=== PATIENT | male | born 1940 | race Caucasian/White ===

== ENCOUNTER 2017-03-08 20:37 | Inpatient (IN) | payer MEDICARE, OTHER ==
[~2017-03-08] VITALS: Ht 170.2 cm; Wt 59.4 kg
[~2017-03-08 20:37] MED LIST: ACET-868 PO; ALEN70TA3 PO; ALPR0.255 PO; ASPI81TA2 PO; BISA10SU8 RC; CARB1TAB21 PO; CHOL100044 PO; DEXT1CAP3 PO; LACT10SO7 PO; MAGN400O6 PO; MELA3TAB PO; PRAM0.75 PO; PRAV20TA PO; SENN8.6C5 PO
--- NOTE | 2017-03-08 20:45 | NUR ---
TO BED 7 A 77 YO MALE PT BIBRA AND PER EMS PATIENT "WAS CHOKING; FOUND STAFF AT [facility] PERFORMING CPR." NO LOSS OF PULSES REPORTED. UPON ARRIVAL TO ER, PATIENT, DOES NOT FOLLOW COMMANDS, RESTLESS. 70'S O2 SAT ON ROOM AIR, COARSE ON VINCENT LUNGS, KEPT HOB ELEVATED. O2 THERAPY INITIATED. PLACED CARDIAC AND VS MONITORING. RT CALLED. DR BEDOLLA AT BEDSIDE FOR EVAL.
--- NOTE | 2017-03-08 20:48 | NUR ---
DIMA BLOOD ON THE [facility] G18.
--- NOTE | 2017-03-08 20:50 | NUR ---
CXR AT BEDSIDE.
[2017-03-08 21:09] LABS: BASOPHILS # (AUTO) 0.1 /CMM (0.0-0.2); EOSINOPHILS # (AUTO) 0.2 /CMM (0.0-0.7); HEMATOCRIT 41 % (39-51); HEMOGLOBIN 13.2 g/dL (13.5-17.5); LYMPHOCYTES # (AUTO) 2.2 /CMM (0.8-4.8); LYMPHOCYTES % (AUTO) 28.5 % (20.0-44.0); MEAN CORPUSCULAR HEMOGLOBIN 29 PG (26.0-33.0); MEAN CORPUSCULAR HGB CONC 32 g/dl (31.0-36.0); MEAN CORPUSCULAR VOLUME 88 fL (80-96); MONOCYTES # (AUTO) 0.4 /CMM (0.1-1.30); MONOCYTES % (AUTO) 5.4 % (2.0-12.0); NEUTROPHILS # (AUTO) 4.9 /CMM (1.8-8.9); NEUTROPHILS % (AUTO) 63.1 % (43.0-81.0); PLATELET COUNT (AUTO) 276 /CMM (150-450); RDW COEFFICIENT OF VARIATION 12.8 (11.5-15.0); RED BLOOD CELL COUNT(AUTO) 4.62 MIL/uL (4.5-6.0); WHITE BLOOD COUNT (AUTO) 7.8 K/uL (4.3-11.0)
[2017-03-08 21:16] LABS: ABG BASE EXCESS -1.2 mmol/L; ABG OXYGEN SATURATION 61.5 % (92.0-98.5); ABG PCO2 53.5 mmHg (35.0-45.0); ABG PH 7.303 (7.350-7.450); ABG PO2 35.7 mmHg (75.0-100.0); AaDO2 129.9 mmHg; COHb 0.8 % (0.5-1.5); MetHb 0.4 % (0.0-1.5); O2Hb 60.8 % (94.0-97.0); SITE, ABG Right Radial; VENT MODE, BG N/C
[2017-03-08 21:23] LABS: CARBON DIOXIDE 29 mmol/L (21-32); CHLORIDE 103 mmol/L (98-107); CREATININE 1.3 mg/dL (0.6-1.3); GLUCOSE 141 mg/dL (74-106); POTASSIUM 3.8 mmol/L (3.5-5.1); SODIUM SERUM 140 mmol/L (136-145); UREA NITROGEN, BLOOD 35 mg/dL (7-18)
[2017-03-08 21:25] LABS: INR 0.91 (0.87-1.13); PROTHROMBIN TIME 9.5 SECS (9.5-12.7)
[2017-03-08 21:29] LABS: TROPONIN I < 0.017 ng/mL (0.00-0.056)
[2017-03-08] MEDS ORDERED: D5W IV PRN (21:30)
[2017-03-08] MEDS ORDERED: MIDAZOLAM HCL IV PRN (21:30)
[2017-03-08] MEDS ORDERED: MIDAZOLAM HCL 5 MG/5ML VIAL ONE (21:34)
[2017-03-08 21:39] VITALS: BP 129/81
--- NOTE | 2017-03-08 21:40 | NUR ---
2122- ABG RESULTED, DR BEDOLLA FOR INTUBATION AT BEDSIDE 2124 - ETOMIDATE 10MG AND SUCCS 100MG GIVEN IVP PRIOR TO INTUBATION GIVEN. 2125 - 7.5 ET TUBE PLACED AT 23CM ON LIP CONNECTED TO [facility] VENT WITH SETTINGS FOLLOWS, AC, RATE 20, TV 500, PEEP 5, FIO2 AT 100%, VAL RT AT BEDSIDE. O2 SAT AT LOW 90'S AT THIS TIME. WILL CONTINUE TO MONITOR.
--- NOTE | 2017-03-08 21:45 | NUR ---
18 F NGT PLACED ON THE RIGHT NARE WITH TIP AT 65CM, AUSCULTATED GURGLING SOUNDS ON THE EPIGASTRIC AREA UPON INSTILLING AIR, BROWNISH GASTRIC CONTENTS ASPIRATED. CXR AT BEDSIDE FOR PLACEMENT CHECK.
[2017-03-08] MEDS ORDERED: EPINEPHRINE (1:10,000) SYRINGE 1 MG/10 ML DISP.SYRIN ONE (21:48)
--- NOTE | 2017-03-08 21:48 | NUR ---
VITAL SIGNS NOTED AT BP 53/32. HR 83. O2SAT 84%. DR BEDOLLA NOTIFIED. EPI 1 AMP GIVEN IVP ORDERED BY DR BEDOLLA.
--- NOTE | 2017-03-08 21:50 | NUR ---
STARTED 2ND SALINE LOCK ON THE LFA G16 PER DR BEDOLLA VERBAL ORDER.
[2017-03-08] MEDS ORDERED: MIDAZOLAM 50 MG/10 ML VIAL ONE (21:51)
--- NOTE | 2017-03-08 21:51 | NUR ---
2 IV NS IL BOLUS ONGOING TO RAC G18 AND LFA G16 [address] BEDOLLA'S VERBAL ORDER.
[2017-03-08] MEDS ORDERED: MIDAZOLAM HCL 2 MG/2ML VIAL IV ONE (22:00)
--- NOTE | 2017-03-08 22:03 | NUR ---
DR BEDOLLA AT BEDSIDE FOR CENTRAL VENOUS ACCESS PLACEMENT.
[2017-03-08] MEDS ORDERED: KETAMINE HCL (500MG/10ML) 50 MG/ML VIAL ONE (22:04)
--- NOTE | 2017-03-08 22:10 | NUR ---
RIGHT FEMORAL TRIPLE LUMEN CATH PLACED BY DR BEDOLLA.
[2017-03-08] MEDS ORDERED: PROPOFOL 100 ML IV ONE (22:11)
[2017-03-08] MEDS ORDERED: NOREPINEPHRINE 4 MG/4 ML AMPUL IV ONE (22:12)
--- NOTE | 2017-03-08 22:20 | NUR ---
STARTED PATIENT ON PROPOFOL AND LEVOPHED DRIP PER PROTOCOL.
[2017-03-08 22:28] LABS: ALANINE AMINOTRANSFERASE 16 U/L (12-78); ALBUMIN 3.7 g/dL (3.4-5.0); ALKALINE PHOSPHATASE 112 U/L (46-116); ASPARTATE AMINOTRANSFERASE 38 U/L (15-37); BILIRUBIN,DIRECT 0.1 mg/dL (0.0-0.2); BILIRUBIN,TOTAL 0.3 mg/dL (0.2-1.0); TOTAL PROTEIN, SERUM 7.4 g/dL (6.4-8.2)
[2017-03-08] MEDS ORDERED: PROPOFOL 200 MG/20 ML VIAL IV ONE (22:30)
[2017-03-08] MEDS ORDERED: NOREPINEPHRINE 8 MG in IV D5W 500 ML IV PRN ×2 (22:30→23:30)
[2017-03-08 22:43] LABS: B-TYPE NATRIURETIC PEPTIDE 196 PG/ML (0-125)
--- NOTE | 2017-03-08 22:50 | NUR ---
ADVANCED NG TUBE TO 70CM PER DR JOHN ORDERS POST XR READING. SECURED WITH TAPE. ENDORSED TO INSTRUCTOR MODELINGMAIRA MITCHELL CATH PLACEMENT. Addendum: 03/08/17 at [address] STEWART.
--- NOTE | 2017-03-08 22:55 | NUR ---
Report given to Jose C RAO for ICU admission and chasity.
[2017-03-08] MEDS ORDERED: KETAMINE HCL (500MG/10ML) 50 MG/ML VIAL IM ONE (23:00)
--- NOTE | 2017-03-08 23:15 | NUR ---
SENIOR CONTRACTS ADMINISTRATOR - NOTES - PT RECEIVED FROM ER ADMITTED FOR RESPIRATORY FAILURE. PT WAS INTUBATED IN ER WITH ETT 7.5, 23 CM AT LIP. PT HAS NGT, WILL INSERT MITCHELL CATHETER, PT IS SEDATED ON DIPRIVAN AND HAS LEVOPHED RUNNING, VIA RIGHT FEMORAL TRIPLE LUMEN CATHETER. PT BUE AND BLE ARE RIGID, PUPILS ARE 1, PT IS NOT ALERT. PT IS IN SINUS RHYTHM, BP 90S-100S ON LEVO. SOME COFFEE GROUND EMESIS FROM NGT, NGT TO LIS. SOME MINOR SKIN ISSUES NOTED, PICTURES TAKEN. WILL CONTINUE TO MONITOR
--- NOTE | 2017-03-08 23:17 | NUR ---
Transferred patient to ICU rm [id number] via als protocol, no incident noted, vss.
[2017-03-08] MEDS ORDERED: IV D5/0.45 NACL 1,000 ML IV PRN (23:30)
[2017-03-08] MEDS ORDERED: IPRATROPIUM NEB FS 0.5 MG/2.5 ML AMPUL.NEB NEB PRN (23:30)
[2017-03-08] MEDS ORDERED: PROPOFOL 100 ML IV PRN (23:30)
[2017-03-08] MEDS ORDERED: ALBUTEROL FS 2.5 MG/3 ML VIAL.NEB NEB PRN (23:30)
[2017-03-08] MEDS ORDERED: EPINEPHRINE (1:1000) 1 MG in IV D5W 250 ML IV PRN (23:30)
[2017-03-08] MEDS ORDERED: DEXTROSE 50%-WATER 50 ML DISP.SYRIN IV PRN (23:30)
[2017-03-08] MEDS ORDERED: LEVOFLOXACIN 500 MG /D5W 100ML 500 MG in PREMIX 1 EA IV SCH (23:30)
[2017-03-08] MEDS ORDERED: AZITHROMYCIN 500 MG in IV D5W 250 ML IV SCH (23:30)
[2017-03-08 23:34] VITALS: BP 124/75
[2017-03-08 23:45] VITALS: BP 110/63
[2017-03-08] MEDS ORDERED: PANTOPRAZOLE 40 MG VIAL ONE (23:53)
[2017-03-08] MEDS ORDERED: LEVOFLOXACIN 500 MG /D5W 100ML 100 ML IV ONE (23:54)
[2017-03-08] MEDS: PANTOPRAZOLE 40 MG VIAL IV SCH (23:59)
[2017-03-09] VITALS (83 sets, daily range): BP systolic 85–145; BP diastolic 48–106
[2017-03-09] MEDS ORDERED: MAGNESIUM HYDROXIDE 30 ML UDC PO PRN
[2017-03-09] MEDS ORDERED: ALPRAZOLAM 0.25 MG TABLET PO PRN
[2017-03-09] MEDS ORDERED: BISACODYL SUPP (10 MG) 10 MG/SUPP.RECT SUPP.RECT RC PRN
--- NOTE | 2017-03-09 | NUR ---
MITCHELL CATHETER PLACED, URINE CULTURE COLLECTED, URINE IS YELLOW WITH SEDIMENT. AND SPUTUM CULTURE COLLECTED.
[2017-03-09] MEDS ORDERED: ALBUTEROL FS 2.5 MG/3 ML VIAL.NEB ONE ×2 (00:02→03:15)
[2017-03-09] MEDS ORDERED: IPRATROPIUM NEB FS 0.5 MG/2.5 ML AMPUL.NEB ONE ×2 (00:02→03:15)
[2017-03-09] MEDS: BLOOD SUGAR DIAGNOSTIC 1 EACH STRIP IN SCH ×4 (00:04→17:17)
[2017-03-09] MEDS: IPRATROPIUM NEB FS 0.5 MG/2.5 ML AMPUL.NEB NEB SCH ×7 (00:04→23:49)
[2017-03-09] MEDS: ALBUTEROL FS 2.5 MG/3 ML VIAL.NEB NEB SCH ×7 (00:04→23:49)
[2017-03-09] MEDS ORDERED: AZITHROMYCIN 500 MG VIAL ONE (00:43)
[2017-03-09] MEDS ORDERED: VANCOMYCIN 1 GM VIAL ONE (00:54)
[2017-03-09] MEDS ORDERED: VANCOMYCIN 1 GM in IV D5W 250 ML IV ONE (01:00)
[2017-03-09] MEDS: AZITHROMYCIN 500 MG in IV D5W 250 ML IV SCH (01:08)
[2017-03-09] MEDS ORDERED: PROPOFOL 100 ML IV ONE (03:17)
[2017-03-09 04:43] LABS: APPEARANCE,URINE SL CLOUDY (CLEAR); BILIRUBIN,URINE NEGATIVE (NEGATIVE); BLOOD, URINE TRACE-INTA Ery/uL (NEGATIVE); COLOR,URINE YELLOW (YELLOW); KETONES,URINE TRACE (NEGATIVE); LEUKOCYTE ESTERASE ,URINE NEGATIVE (NEGATIVE); NITRITE, URINE NEGATIVE (NEGATIVE); PROTEIN,URINE 1+ mg/dl (NEGATIVE); UGLUCOSE NEGATIVE (NEGATIVE); UROBILINOGEN,URINE 0.2 EU/dL (0.2)
[2017-03-09 04:54] LABS: BACTERIA,URINE Few /HPF (None Seen); RBC,URINE 0-2 /HPF (0-2); SQUAMOUS EPITHELIAL CELL,UR Rare /HPF (None Seen)
[2017-03-09 04:57] LABS: ALANINE AMINOTRANSFERASE 17 U/L (12-78); ALBUMIN 2.8 g/dL (3.4-5.0); ALKALINE PHOSPHATASE 80 U/L (46-116); ASPARTATE AMINOTRANSFERASE 28 U/L (15-37); BILIRUBIN,TOTAL 0.5 mg/dL (0.2-1.0); CALCIUM, SERUM 7.8 mg/dL (8.5-10.1); CARBON DIOXIDE 26 mmol/L (21-32); CHLORIDE 103 mmol/L (98-107); GLUCOSE 182 mg/dL (74-106); MAGNESIUM 1.7 mg/dL (1.8-2.4); POTASSIUM 3.5 mmol/L (3.5-5.1); SODIUM SERUM 137 mmol/L (136-145); TOTAL PROTEIN, SERUM 5.7 g/dL (6.4-8.2); UREA NITROGEN, BLOOD 29 mg/dL (7-18)
[2017-03-09 05:23] LABS: CHOLESTEROL 110 mg/dL (<200); HDL CHOLESTEROL 65 mg/dL (40-60); LDL 38 mg/dL (0-99); TRIGLYCERIDES 25 mg/dL (30-150)
[2017-03-09 05:34] LABS: BASOPHILS % (AUTO) 0.2 % (0.0-2.0); EOSINOPHILS % (AUTO) 0.5 % (0.0-6.0); HEMATOCRIT 36 % (39-51); HEMOGLOBIN 12.2 g/dL (13.5-17.5); LYMPHOCYTES # (AUTO) 0.3 /CMM (0.8-4.8); LYMPHOCYTES % (AUTO) 15.2 % (20.0-44.0); MEAN CORPUSCULAR HEMOGLOBIN 30 PG (26.0-33.0); MEAN CORPUSCULAR HGB CONC 34 g/dl (31.0-36.0); MEAN CORPUSCULAR VOLUME 88 fL (80-96); MONOCYTES # (AUTO) 0.1 /CMM (0.1-1.30); MONOCYTES % (AUTO) 5.6 % (2.0-12.0); NEUTROPHILS # (AUTO) 1.6 /CMM (1.8-8.9); NEUTROPHILS % (AUTO) 78.5 % (43.0-81.0); PLATELET COUNT (AUTO) 217 /CMM (150-450); RDW COEFFICIENT OF VARIATION 13.4 (11.5-15.0); RED BLOOD CELL COUNT(AUTO) 4.14 MIL/uL (4.5-6.0)
[2017-03-09 05:51] LABS: BAND % (MANUAL) 4 % (0.0-5.0); LYMPHOCYTES % (MANUAL) 17 % (16-48); MONOCYTES % (MANUAL) 5 % (0-11.0); NEUTROPHILS % (MANUAL) 74 (42-76)
--- NOTE | 2017-03-09 08:00 | NUR ---
CAREER TECHNICAL EDUCATION TEACHER; ASSESSMENT RECEIVED PT VENTED VIA ETT, SEE FLOW SHEET FOR VENT SETTINGS. PT SEDATED ON DIPRIVAN DRIP, CURRENTLY ON 50MCG/KG/MIN WILL TITRATE FOR SEDATION VACATION. ON LEVOPHED DRIP AT 8MCG/MIN. WILL TITRATE ACCORDINGLY TO KEEP SPB GREATER THAN 90. NOTED VINCENT LOWER AND UPPER EXTREMITIES RIGID. MITCHELL CATH INTACT DRAINING TO GRAVITY CLEAR YELLOW URINE. NO ACUTE DISTRESS NOTED WILL CONTINUE TO MONITOR CLOSELY.
[2017-03-09] MEDS ORDERED: FEE PK DOSING 1 MIN EA MC ONE (08:36)
[2017-03-09] MEDS: PROPOFOL 100 ML IV PRN ×4 (08:37→23:43)
[2017-03-09 08:39] LABS: ABG BASE EXCESS -2.1 mmol/L; ABG OXYGEN SATURATION 91.3 % (92.0-98.5); ABG PCO2 32.7 mmHg (35.0-45.0); ABG PH 7.432 (7.350-7.450); ABG PO2 60.3 mmHg (75.0-100.0); AaDO2 151.2 mmHg; MetHb 0.6 % (0.0-1.5); O2Hb 89.8 % (94.0-97.0); PEEP,BG 5 cm H2O; SITE, ABG Right Radial; VT, ABG 500 mL
--- NOTE | 2017-03-09 08:45 | NUR ---
ENGINEER CHIEF; SEDATION VACATION. DIPRIVAN DECREASED DOWN TO 30MCG/KG/MIN. PT IS AWAKE APPEARS TO HAVE UPPER EXTREMITIES TREMORS. PT REACHING FOR ETT, UNABLE TO FOLLOW COMMANDS. DIPRIVAN PLACED TO 40MCG/KG/MIN FOR PT SAFETY AND COMFORT.
[2017-03-09] MEDS ORDERED: ETOMIDATE 2 MG/ML VIAL IV ONE (08:50)
[2017-03-09] MEDS: CHOLECALCIFEROL 1,000 UNIT TABLET (VIT D3) PO SCH ×2 (09:21→17:17)
[2017-03-09] MEDS: ASPIRIN 81 MG TAB.CHEW PO SCH (09:21)
[2017-03-09] MEDS: LACTULOSE 10 G/15 ML UDC (PYXIS) PO SCH ×2 (10:43→17:17)
--- NOTE | 2017-03-09 10:54 | NUR ---
WOUND CARE CONSULT PATIENT SEEN AND SKIN INTEGRITY ASSESSMENT DONE. PATIENT WITH KATERIN AT 10, PLEASE SEE GREEN COFFEE BLENDER ASSESSMENT IN PCS FOR TODAY ALONG WITH ALL RECOMMENDATIONS. RECOMMEND 1ST STEP LOW AIRLOSS MATTRESS, TURNING SCHED Q 2 HOURS AND BILATERAL HEEL FLOATING. MD IN AGREEMENT WITH PLAN OF CARE. ALL PRESSURE ULCER PREVENTION MEASURES NOTED TO BE IN PLACE. ALL DISCUSSED WITH NURSING AT THE BEDSIDE. Addendum: 03/09/17 at 1059 by CHANTELL OSBORNE WNDNU Amended: Links added.
[2017-03-09] MEDS ORDERED: Z GUARD REMEDY 2 OZ OINT TP PRN (11:00)
[2017-03-09] MEDS: PRAMIPEXOLE DI-HCL 0.25 MG TABLET PO SCH ×2 (12:06→17:17)
[2017-03-09] MEDS: Magnesium 1GM/D5W 100ML PREMIX 100 ML IV SCH ×2 (12:06→13:11)
[2017-03-09] MEDS ORDERED: Sodium Phosphate 15 MMOL in IV D5W 250 ML IV ONE (12:30)
[2017-03-09] MEDS: VANCOMYCIN 0.75 GM in IV D5W 250 ML IV SCH (13:11)
[2017-03-09] MEDS: Z GUARD REMEDY 2 OZ OINT TP SCH (13:12)
[2017-03-09] MEDS: NOREPINEPHRINE 8 MG in IV D5W 500 ML IV PRN (15:24)
--- NOTE | 2017-03-09 16:30 | NUR ---
DR. SANCHEZ ORDERS TO HAVE THE FEMORAL CENTRAL LINE CHANGED TO A PICC. CALLED TWICE TO THE CONSERVATOR (BRIDGET CALDWELL) OFFICE NUMBER ON THE FACE SHEET. BOTH TIMES WENT TO HER OFFICE ANSWERING SERVICE WHICH DIRECTED ME TO THE CONSERVATOR/DEPUTY OPTOMETRIC AIDE "FOR UNIT 3." LEFT HIPPA COMPLIANT MESSAGE BOTH TIMES TO CALL BACK SHOBHA. STILL AWAITING FOR CALL BACK.
[2017-03-09] MEDS: ENOXAPARIN SODIUM 40 MG/0.4 ML DISP.SYRIN SQ SCH ×2 (16:42→21:32)
[2017-03-09] MEDS: NEOMY SULF/BACITRAC ZN/POLY 15 GM TUBE TP SCH (16:43)
[2017-03-09] MEDS: IV 1/2NS 1000 ML 1,000 ML IV PRN (17:18)
--- NOTE | 2017-03-09 19:27 | NUR ---
LICENSED THERAPIST. INITIAL ASSESSMENT. RECEIVED THE PT REST ON THE BED. ORALLY INTUBATED. SEDATED WITH DIPRIVAN. ETT 7.5CM,LIP 22CM,AC 20, TV 500, FIO2 40%, PEEP 5. SAT 98%OVERHAULER HELPER SHOWING NSR. IV RT FEMORAL TRIPLE LUMEN.IVF 1/2NS 80ML/H,LEVOPHED 1MCG/MIN,DIPRIVAN 40MCG/KG/MIN.RT NARE NGT, LOW INTERMITTENT . FC PATENT. HOB ELEVATED. TURN AND REPOSITION Q2H. WILL CONTINUE TO MONITOR VITALS.
[2017-03-09] MEDS: SENNOSIDES 8.6 MG TABLET PO SCH (21:31)
[2017-03-09] MEDS: ATORVASTATIN 10 MG TABLET NG SCH (21:32)
[2017-03-09] MEDS ORDERED: Medication Not On Formulary EA (Melatonin 6 MG) PO SCH (22:00)
[2017-03-09] MEDS: LEVOFLOXACIN 250 MG /D5W 50 ML 250 MG in PREMIX 1 EA IV SCH (23:42)
[2017-03-09] MEDS: PANTOPRAZOLE 40 MG VIAL IV SCH (23:43)
[2017-03-10] VITALS (40 sets, daily range): BP systolic 99–164; BP diastolic 40–140
[2017-03-10] MEDS: BLOOD SUGAR DIAGNOSTIC 1 EACH STRIP IN SCH ×5 (00:26→23:32)
[2017-03-10] MEDS: VANCOMYCIN 0.75 GM in IV D5W 250 ML IV SCH ×2 (00:46→12:33)
[2017-03-10] MEDS: AZITHROMYCIN 500 MG in IV D5W 250 ML IV SCH (02:06)
[2017-03-10] MEDS: IPRATROPIUM NEB FS 0.5 MG/2.5 ML AMPUL.NEB NEB SCH ×6 (03:12→23:25)
[2017-03-10] MEDS: ALBUTEROL FS 2.5 MG/3 ML VIAL.NEB NEB SCH ×6 (03:13→23:25)
--- NOTE | 2017-03-10 03:39 | NUR ---
ORCHARDIST. AM CARE, ORAL CARE, BED BATH GIVEN. LINEN CHANGED. REMAINING SAME IVF NS 80ML/H. LEVOPHED 2MCG/MIN DIPRIVAN 40MCG/KG/MIN. TURN AND REPOSITION Q2H. WILL CONTINUE TO MONITOR VITALS.. AFEBRILE. NGT LOW INTERMITTENT, FC PATENT. NPO. HOB ELEVATED.
[2017-03-10 04:40] LABS: CALCIUM, SERUM 7.7 mg/dL (8.5-10.1); CARBON DIOXIDE 24 mmol/L (21-32); CHLORIDE 106 mmol/L (98-107); CREATININE 0.8 mg/dL (0.6-1.3); GLUCOSE 118 mg/dL (74-106); MAGNESIUM 2.4 mg/dL (1.8-2.4); POTASSIUM 3.1 mmol/L (3.5-5.1); SODIUM SERUM 139 mmol/L (136-145); UREA NITROGEN, BLOOD 15 mg/dL (7-18)
--- NOTE | 2017-03-10 07:00 | NUR ---
ICU INITIAL NOTES RECEIVED PT, SEDATION, ON [facility] VENT, ETT 7.5 22CM @ LIP LINE, AC 20 TV 500% FIO2 40% PEEP 5, SATING 100%, NO S/S OF RESP.DISTRESS OR SOB NOTED AT THIS TIME, PT IS ON BEDSIDE SR @ 80'S BPM, NO C/O CHEST PAIN OR DISTRESS NOTED, F/C DRAINING YELLOW URIN E TO GRAVITY, PT RNGT CONNECTED LIS, DRAINING GREEN FLUID, PT HAS R FEMORAL TLC, RUNNING LEVO @1MCG/MIN, DIPRIVAN @ 40MCG/MIN, C/D/I/ PATENT, FLUSHING WELL, DRESSING INTACT/CLEAN, RAC # 18G, LFA# 16G, SL, C/D/I/PATENT, FLUSHING WELL, NO S/S OF INFECTION/ INFILTRATION NOTED AT THIS TIME, SKIN ISSUES NOTED AT THIS TIME, ALL SAFETY MEASURES IN PLACE AT ALL TIMES, CALL LIGHT WITHIN EASY REACH, WILL MONITOR PT CLOSELY
--- NOTE | 2017-03-10 07:30 | NUR ---
DR. SANCHEZ ORDERS TO HAVE THE FEMORAL CENTRAL LINE CHANGED TO A PICC. CALLED TWICE TO THE CONSERVATOR (BRIDGET CALDWELL) OFFICE NUMBER. BOTH TIMES WENT TO HER OFFICE ANSWERING SERVICE WHICH DIRECTED ME TO THE DEPUTY BLASTING ENTRY SPECIALIST "FOR UNIT 3." LEFT MESSAGE BOTH TIMES TO CALL BACK SHOBHA. STILL AWAITING FOR CALL BACK.
--- NOTE | 2017-03-10 08:00 | NUR ---
SEDATION VACATION DIPRIVAN TURNED OFF, PT RESPONDS TO NAME, UNABLE TO FOLLOW COMMANDS, SHAKES IN ALL 4 EXTREMITIES, PT BITING ON EET TUBE, HR INCREASED, RESUMES DIPRIVAN @ 0815 @ 20MCG/MIN
[2017-03-10] MEDS: PRAMIPEXOLE DI-HCL 0.25 MG TABLET PO SCH ×3 (09:00→16:56)
[2017-03-10] MEDS ORDERED: DEXTROMETHORPHAN HBR PO SCH (09:00)
[2017-03-10] MEDS: CHOLECALCIFEROL 1,000 UNIT TABLET (VIT D3) PO SCH ×2 (09:00→16:56)
[2017-03-10] MEDS: ASPIRIN 81 MG TAB.CHEW PO SCH (09:00)
[2017-03-10] MEDS ORDERED: QUINIDINE PO SCH (09:00)
[2017-03-10] MEDS: LACTULOSE 10 G/15 ML UDC (PYXIS) PO SCH ×2 (09:00→16:56)
[2017-03-10] MEDS: CARBIDOPA/LEVODOPA 25/100 MG 1 UDTAB PO SCH ×3 (09:00→16:57)
[2017-03-10] MEDS: NEOMY SULF/BACITRAC ZN/POLY 15 GM TUBE TP SCH (09:40)
[2017-03-10] MEDS: Z GUARD REMEDY 2 OZ OINT TP SCH (09:41)
[2017-03-10] MEDS: IV 1/2NS 1000 ML 1,000 ML IV PRN ×2 (09:42→16:59)
--- NOTE | 2017-03-10 09:49 | NUR ---
ICU NOTES NON ADMINISTERED PINK MEDICATIONS FOR PT SAFETY
[2017-03-10] MEDS: PROPOFOL 100 ML IV PRN ×2 (12:23→16:59)
[2017-03-10] MEDS: POTASSIUM CL. PREMIX PERIPHER. 50 ML IV SCH ×4 (12:23→16:52)
[2017-03-10] MEDS: GLYTROL 1,000 ML BAG GT PRN (17:50)
--- NOTE | 2017-03-10 19:11 | NUR ---
SUPERVISOR SLASHING DEPARTMENT: RECEIVED PT ON SEDATION DIPRIVAN AT 40 MCG/KG/MIN, [facility], ETT 7.5 22CM @ LIP LINE, AC 20 TV 500% FIO2 40% PEEP 5, SATURATING 100%, NO S/S OF RESP.DISTRESS OR SOB NOTED AT THIS TIME, SINUS RHYTHM ON MONITOR 80-90. F/C DRAINING YELLOW URIN E TO GRAVITY., PT HAS R FEMORAL TLC, RUNNING TKO, MIN, LINE IS C/D/I/ PATENT, FLUSHING WELL, DRESSING INTACT/CLEAN, RAC # 18G, LFA# 16G, SL. SKIN PROTECTION MEASURES APPLIED. KEEP TURNING Q2H. SAFETY MEASURES IN PLACE AT ALL TIMES. KEEP MONITORING...
--- NOTE | 2017-03-10 20:12 | NUR ---
RT RECEIVED PT ORALLY INTUBATED W/ A 7.5 ETT MARKED 22CM AT THE LIP. PT ON AC 20 500 40% +5 VENT SETTINGS. VENT ALARMS CHECKED AND AUDIBLE. VENT PLUGGED IN RED OUTLET. AMBU BAG NOTED BEDSIDE. B/S BILATERAL. BREAKFAST AND ROOM ATTENDANT DONE. SX WITH MINIMAL THK YELLOW/WHITE SECRETIONS. NO SIGNS OF RESP DISTRESS. WILL CONTINUE TO MONITOR T/O SHIFT, Addendum: 03/10/17 at 2014 by ARLET IRIZARRY RT Amended: Links added.
[2017-03-10] MEDS: ATORVASTATIN 10 MG TABLET NG SCH (20:41)
[2017-03-10] MEDS: ENOXAPARIN SODIUM 40 MG/0.4 ML DISP.SYRIN SQ SCH (20:42)
[2017-03-10] MEDS: SENNOSIDES 8.6 MG TABLET PO SCH (20:42)
[2017-03-10] MEDS: LEVOFLOXACIN 250 MG /D5W 50 ML 250 MG in PREMIX 1 EA IV SCH (23:20)
[2017-03-10] MEDS: IV NS 0.9% 250 ML IV PRN (23:20)
[2017-03-10] MEDS: PANTOPRAZOLE 40 MG VIAL IV SCH (23:32)
[2017-03-11] VITALS (98 sets, daily range): BP systolic 58–168; BP diastolic 29–89
[2017-03-11] MEDS: PROPOFOL 100 ML IV PRN ×4 (00:18→23:14)
[2017-03-11] MEDS: VANCOMYCIN 0.75 GM in IV D5W 250 ML IV SCH ×2 (00:19→13:33)
[2017-03-11] MEDS: NOREPINEPHRINE 8 MG in IV D5W 500 ML IV PRN ×2 (00:32→16:10)
--- NOTE | 2017-03-11 00:41 | NUR ---
BULK CLERK: SBP DROPPED TO 57/30 EVEN CONTINUE CHECKED X 4 STILL LOW, LEVOPHED RESTARTED AGAIN PER PROTOCOL. KEEP MONITORING...
[2017-03-11] MEDS: AZITHROMYCIN 500 MG in IV D5W 250 ML IV SCH (02:33)
[2017-03-11] MEDS: IPRATROPIUM NEB FS 0.5 MG/2.5 ML AMPUL.NEB NEB SCH ×6 (03:28→23:28)
[2017-03-11] MEDS: ALBUTEROL FS 2.5 MG/3 ML VIAL.NEB NEB SCH ×6 (03:28→23:28)
[2017-03-11 04:40] LABS: CALCIUM, SERUM 7.5 mg/dL (8.5-10.1); CARBON DIOXIDE 23 mmol/L (21-32); CHLORIDE 107 mmol/L (98-107); CREATININE 0.7 mg/dL (0.6-1.3); GLUCOSE 169 mg/dL (74-106); POTASSIUM 3.4 mmol/L (3.5-5.1); SODIUM SERUM 139 mmol/L (136-145)
[2017-03-11 05:13] LABS: UREA NITROGEN, BLOOD 13 mg/dL (7-18)
[2017-03-11] MEDS: BLOOD SUGAR DIAGNOSTIC 1 EACH STRIP IN SCH ×3 (05:27→17:06)
--- NOTE | 2017-03-11 07:35 | NUR ---
RT PT RECEIVED ORALLY INTUBATED WITH A 7.5 ETT SECURED AT 22CM AT THE LIP LINE ON THE VENT. PT IS CURRENTLY SEDATED AT THIS TIME, BUT RESPONDS TO STIMULI. VENT ALARMS ARE SET AND AUDIBLE WITH BVM BY BEDSIDE. VENT IS PLUGGED INTO RED OUTLET. NO RESPIRATORY DISTRESS NOTED AT THIS TIME, WILL CONTINUE TO MONITOR. Addendum: 03/11/17 at 1835 by CLAUDETTE CESPEDES RT Amended: Links added.
--- NOTE | 2017-03-11 08:00 | NUR ---
TELEPHONE DIRECTORY DISTRIBUTOR DRIVER- PT NOTED WITH TEMPERATURE OF 100.8. WILL ADMINISTER TYLENOL ORDERED PRN IN OCT. COOLING MEASURES TO BE APPLIED. WILL CONTINUE TO MONITOR.
[2017-03-11] MEDS: ASPIRIN 81 MG TAB.CHEW PO SCH (08:36)
[2017-03-11] MEDS: ACETAMINOPHEN 325 MG TABLET PO PRN (08:36)
[2017-03-11] MEDS: CHOLECALCIFEROL 1,000 UNIT TABLET (VIT D3) PO SCH ×2 (08:36→16:05)
[2017-03-11] MEDS: LACTULOSE 10 G/15 ML UDC (PYXIS) PO SCH ×2 (08:36→16:05)
[2017-03-11] MEDS: NEOMY SULF/BACITRAC ZN/POLY 15 GM TUBE TP SCH (08:37)
[2017-03-11] MEDS: Z GUARD REMEDY 2 OZ OINT TP SCH (08:37)
[2017-03-11 08:51] LABS: ABG BASE EXCESS -0.7 mmol/L; ABG PCO2 32.8 mmHg (35.0-45.0); ABG PH 7.458 (7.350-7.450); ABG PO2 243.7 mmHg (75.0-100.0); AaDO2 3.8 mmHg; COHb 0.6 % (0.5-1.5); O2Hb 97.4 % (94.0-97.0); PEEP,BG 5 cm H2O; SITE, ABG Left Radial; VT, ABG 500 mL
--- NOTE | 2017-03-11 09:00 | NUR ---
DIRECTOR FRAUD- SEDATION VACATION DONE, DIPRIVAN TURNED OFF. PT AWAKE, OPENS EYES, UNABLE TO FOLLOW SIMPLE COMMANDS. PT ATTEMPTING TO REMOVE NGT AND ETT. DIPRIVAN RE-STARTED AT 40 MCG/MIN FOR PT SAFETY. WILL CONTINUE TO MONITOR.
[2017-03-11] MEDS ORDERED: POTASSIUM CHLORIDE 20 MEQ POWDER PACKET NG SCH (10:30)
[2017-03-11] MEDS: INSULIN REGULAR, HUMAN 100 UNIT/ML 3 ML VIAL SQ PRN ×2 (11:34→17:08)
--- NOTE | 2017-03-11 12:00 | NUR ---
SHORE WORKER- I HAVE ATTEMPTED TO CONTACT THE PATIENT'S CONSERVATOR FOR PICC LINE PLACEMENT CONSENT, UNABLE TO GET IN TOUCH AND UNABLE TO LEAVE MESSAGE ON NUMBER PROVIDED. PT ON PRESSORS (REQUIRES LEVOPHED FOR BP SUPPORT), CONSENT WAS OBTAINED BY 2 NURSES (MYSELF AND KATIE CHARGE). PLACED IN CHART. WILL CONTINUE TO MONITOR.
--- NOTE | 2017-03-11 12:30 | NUR ---
FOLDER AND NOTCHERMallory AGUILLON DNP PLACED PICC LINE IN [facility], STATES CHEST X-RAY IS NOT NEEDED. PT TOLERATED WELL, WILL CONTINUE TO MONITOR.
[2017-03-11] MEDS: GLYTROL 1,000 ML BAG GT PRN (14:02)
--- NOTE | 2017-03-11 17:15 | NUR ---
WIRE TINNER- DR. SANCHEZ AT BEDSIDE. UPDATED MD ON PT'S STATUS. MD AWARE OF PT'S TEMP 100.8 THIS AM, FEMORAL TLC WAS REMOVED AND PICC LINE WAS PLACED. OBTAINED ORDERS FOR 1) BLOOD CULTURE X2 AND 2) CATH TIP CULTURE. ORDERS PLACED. WILL CONTINUE TO MONITOR.
--- NOTE | 2017-03-11 19:45 | NUR ---
ICU/SCALE INSTALLER RECEIVED REPORT FROM DAY NURSE. PT IS OBTUNDED, AND OPENS EYES BUT DOES NOT TRACK. PT IS ORALLY INTUBATED TOLERATING CURRENT SETTINGS, SATURATION IS 99-100%. PT IS CURRENTLY SR ON THE MONITOR. PT HAS RIGHT NARE N/G FEEDING TUBE WITH GLYROL 65CC/HR. PT HAS DIAPER ON, CURRENTLY DRY. PT ALSO HAS A DIAPER ON PT HAS A FEW SKIN SKIN ISSUES THAT ARE ADDRESSED ON THE FLOW SHEET. REPOSITIONED FOR COMFORT AND CARE. NO ACUTE DISTRESS SEEN AT THIS TIME, PT APPEARS COMFORTABLE. WILL MONITOR PT.
[2017-03-11] MEDS: ATORVASTATIN 10 MG TABLET NG SCH (21:27)
[2017-03-11] MEDS: SENNOSIDES 8.6 MG TABLET PO SCH (21:27)
[2017-03-11] MEDS: ENOXAPARIN SODIUM 40 MG/0.4 ML DISP.SYRIN SQ SCH (21:29)
--- NOTE | 2017-03-11 23:10 | NUR ---
ICU/PETROLEUM ANALYST STARTED LEVO AGAIN DUE TO LOW BLOOD PRESSURE. IT RECYCLED TWICE WITH BLOOD PRESSURE IN THE 80'S. FIRST TIME WAS 80/45 THEN 83/43, CHARGE NURSE WAS NOTIFIED THEN STATED ON LEVO AT 1 MCG. PT WAS TURNED AND REPOSITIONED FOR COMFORT AND CARE. WILL CONTINUE TO MONITOR THE BLOOD PRESSURE.
[2017-03-11] MEDS: LEVOFLOXACIN 250 MG /D5W 50 ML 250 MG in PREMIX 1 EA IV SCH (23:13)
[2017-03-11] MEDS: PANTOPRAZOLE 40 MG VIAL IV SCH (23:14)
--- NOTE | 2017-03-11 23:20 | NUR ---
ICU/UNHAIRING MACHINE OPERATOR RESPIRATORY THERAPIST AT BEDSIDE GIVING BREATHING TREATMENT. PT TOLERATED THIS WELL AND REMAINS ON CURRENT VENT SETTINGS WITH SATURATION AT 100%. WILL CONTINUE TO MONITOR THIS PT AND HIS SATURATION. NO ACUTE DISTRESS SEEN AT THIS TIME, PT APPEARS TO BE COMFORTABLE.
[2017-03-12] VITALS (52 sets, daily range): BP systolic 85–145; BP diastolic 45–76
--- NOTE | 2017-03-12 00:45 | NUR ---
ICU/HAND CEMENTER BLOOD SUGAR IS 125, THERE IS NO COVERAGE FOR THIS. WILL CONTINUE TO MONITOR THIS PT. PT WAS TURNED AND REPOSITIONED FOR COMFORT AND CARE.
[2017-03-12] MEDS: VANCOMYCIN 0.75 GM in IV D5W 250 ML IV SCH ×2 (01:51→13:04)
[2017-03-12] MEDS: BLOOD SUGAR DIAGNOSTIC 1 EACH STRIP IN SCH ×4 (01:59→17:10)
[2017-03-12] MEDS: AZITHROMYCIN 500 MG in IV D5W 250 ML IV SCH (02:11)
--- NOTE | 2017-03-12 02:30 | NUR ---
ICU/CARPET CUTTER PT WAS GIVEN AM CARE, ALONG WITH ORAL CARE. PT WAS THEN TURNED AND REPOSITIONED FOR COMFORT AND CARE. PT APPEARS COMFORTABLE, NO ACUTE DISTRESS SEEN, WILL CONTINUE TO MONITOR THIS PT.
[2017-03-12] MEDS: IPRATROPIUM NEB FS 0.5 MG/2.5 ML AMPUL.NEB NEB SCH ×6 (04:00→23:17)
[2017-03-12] MEDS: ALBUTEROL FS 2.5 MG/3 ML VIAL.NEB NEB SCH ×6 (04:00→23:17)
--- NOTE | 2017-03-12 04:10 | NUR ---
ICU/STOREROOM KEEPER AM LABS WERE DRAWN, WAIT LAB RESULTS. PT WAS TURNED AND REPOSITIONED FOR COMFORT AND CARE.
[2017-03-12] MEDS: PROPOFOL 100 ML IV PRN ×3 (05:16→17:17)
[2017-03-12 05:28] LABS: CALCIUM, SERUM 7.8 mg/dL (8.5-10.1); CARBON DIOXIDE 26 mmol/L (21-32); CHLORIDE 108 mmol/L (98-107); CREATININE 0.5 mg/dL (0.6-1.3); GLUCOSE 130 mg/dL (74-106); POTASSIUM 3.6 mmol/L (3.5-5.1); SODIUM SERUM 140 mmol/L (136-145); UREA NITROGEN, BLOOD 12 mg/dL (7-18)
--- NOTE | 2017-03-12 06:10 | NUR ---
ICU/HOD CARRIER BLOOD SUGAR IS 130, THERE IS NO COVERAGE FOR THIS. WILL CONTINUE TO MONITOR THIS PT. PT WAS TURNED AND REPOSITIONED FOR COMFORT AND CARE.
[2017-03-12] MEDS: GLYTROL 1,000 ML BAG GT PRN (06:29)
[2017-03-12] MEDS: IV NS 0.9% 250 ML IV PRN (06:30)
--- NOTE | 2017-03-12 07:00 | NUR ---
Patient intubated ETT 7.5 22cm lip line with vent setting @ AC 16 TV 500 FiO2 30% PEEP 5, saturation wnl. On low dose of levophed @ 1mcg, will titrate off. Sedated with propofol @ 40mcg but eyes open, does not follow command. Moves extremities with pain but no purposeful movement. Resting tremors noted on the lips, will check with Parkinson's meds. Right NGT with feeding running @ 65ml/hr, no residuals. Vitals stable, afebrile.
[2017-03-12] MEDS: LACTULOSE 10 G/15 ML UDC (PYXIS) PO SCH ×2 (08:05→17:10)
[2017-03-12] MEDS: ASPIRIN 81 MG TAB.CHEW PO SCH (08:05)
[2017-03-12] MEDS: CHOLECALCIFEROL 1,000 UNIT TABLET (VIT D3) PO SCH ×2 (08:05→17:10)
[2017-03-12] MEDS: NEOMY SULF/BACITRAC ZN/POLY 15 GM TUBE TP SCH (08:06)
[2017-03-12] MEDS: Z GUARD REMEDY 2 OZ OINT TP SCH (08:06)
--- NOTE | 2017-03-12 09:30 | NUR ---
Seen by Dr. Fabian. May resume Carbidopa/Levodopa 25/100 TID through G-tube if plan to have weaning trial. Off levophed since 0900 and remain normotensive- see vitals signs datascope
--- NOTE | 2017-03-12 14:00 | NUR ---
Talked with Dr. Avery, weaning trial plans french. Sinemet restarted in AM per Dr. Fabian earlier.
--- NOTE | 2017-03-12 20:00 | NUR ---
Received patient sedated on Diprivan drip @ 40 mcg/kg/min but eyes open not tracking and not following commands.Orally intubated on AC mode.Remains on same vent settings well tolerated.SPO2 98%Secretions suctioned and oral care done.VS stable.SR per monitor.Hemodynamically stable.GT feeding via R nare NGT infusing at 65 ml/hr.No residual noted.HOB elevated.IV'S infusing via CONOR PICC Line and site intact.FC to gravity drainage with clear yellow urine.Turned and repositioned offloading pressure points.No acute distress noted.
[2017-03-12] MEDS: ENOXAPARIN SODIUM 40 MG/0.4 ML DISP.SYRIN SQ SCH (21:09)
[2017-03-12] MEDS: ATORVASTATIN 10 MG TABLET NG SCH (22:04)
[2017-03-12] MEDS: SENNOSIDES 8.6 MG TABLET PO SCH (22:04)
[2017-03-12] MEDS: LEVOFLOXACIN 250 MG /D5W 50 ML 250 MG in PREMIX 1 EA IV SCH (23:08)
[2017-03-12] MEDS: PANTOPRAZOLE 40 MG VIAL IV SCH (23:08)
[2017-03-13] VITALS (56 sets, daily range): BP systolic 80–160; BP diastolic 44–91
[2017-03-13] MEDS: BLOOD SUGAR DIAGNOSTIC 1 EACH STRIP IN SCH ×4 (00:13→17:44)
[2017-03-13] MEDS: PROPOFOL 100 ML IV PRN ×4 (00:14→17:00)
[2017-03-13] MEDS: GLYTROL 1,000 ML BAG GT PRN ×2 (00:21→21:04)
[2017-03-13] MEDS: VANCOMYCIN 0.75 GM in IV D5W 250 ML IV SCH ×2 (01:00→12:25)
[2017-03-13] MEDS: AZITHROMYCIN 500 MG in IV D5W 250 ML IV SCH (02:07)
[2017-03-13] MEDS: ALBUTEROL FS 2.5 MG/3 ML VIAL.NEB NEB SCH ×6 (03:14→23:16)
[2017-03-13] MEDS: IPRATROPIUM NEB FS 0.5 MG/2.5 ML AMPUL.NEB NEB SCH ×6 (03:15→23:16)
[2017-03-13 04:49] LABS: CALCIUM, SERUM 7.6 mg/dL (8.5-10.1); CARBON DIOXIDE 29 mmol/L (21-32); CHLORIDE 107 mmol/L (98-107); CREATININE 0.5 mg/dL (0.6-1.3); GLUCOSE 114 mg/dL (74-106); POTASSIUM 3.7 mmol/L (3.5-5.1); SODIUM SERUM 144 mmol/L (136-145); UREA NITROGEN, BLOOD 9 mg/dL (7-18)
[2017-03-13 04:58] LABS: EOSINOPHILS # (AUTO) 0.5 /CMM (0.0-0.7); HEMATOCRIT 30 % (39-51); HEMOGLOBIN 9.9 g/dL (13.5-17.5); LYMPHOCYTES # (AUTO) 0.7 /CMM (0.8-4.8); MEAN CORPUSCULAR HGB CONC 33 g/dl (31.0-36.0); MONOCYTES # (AUTO) 0.4 /CMM (0.1-1.30); MONOCYTES % (AUTO) 6.1 % (2.0-12.0); WHITE BLOOD COUNT (AUTO) 6.9 K/uL (4.3-11.0)
--- NOTE | 2017-03-13 06:30 | NUR ---
Patient resting.VS remains stable.Hemodynamically stable.Tube feeding well tolerated.AM care. Turned and repositioned.All due medications administered.Blood sugar monitored resulted wnl x 2 readings. No acute distress noted.Plan weaning today.
[2017-03-13] MEDS: ASPIRIN 81 MG TAB.CHEW PO SCH (08:30)
[2017-03-13] MEDS: LACTULOSE 10 G/15 ML UDC (PYXIS) PO SCH ×2 (08:30→16:57)
[2017-03-13] MEDS: CHOLECALCIFEROL 1,000 UNIT TABLET (VIT D3) PO SCH ×2 (08:30→17:00)
[2017-03-13] MEDS: Z GUARD REMEDY 2 OZ OINT TP SCH (08:31)
[2017-03-13] MEDS: NEOMY SULF/BACITRAC ZN/POLY 15 GM TUBE TP SCH (08:31)
[2017-03-13] MEDS: CARBIDOPA/LEVODOPA 25/100 MG 1 UDTAB PO SCH ×3 (08:31→17:01)
[2017-03-13] MEDS: IV NS 0.9% 250 ML IV PRN (08:47)
--- NOTE | 2017-03-13 09:13 | NUR ---
BLADE OPERATOR PATIENT IS FOR WEANING, TITRATING DOWN DIPRIVAN TO TOLERABLE LEVEL OPEN EYES NO TRACKING MONITORED CLOSELY LEVOPHED WAS OFF SINCE 9AM YESTERDAY
[2017-03-13 11:01] LABS: BASOPHILS % (AUTO) 0.4 % (0.0-2.0); EOSINOPHILS % (AUTO) 7.4 % (0.0-6.0); LYMPHOCYTES % (AUTO) 10.4 % (20.0-44.0); MEAN CORPUSCULAR HEMOGLOBIN 29 PG (26.0-33.0); MEAN CORPUSCULAR VOLUME 87 fL (80-96); NEUTROPHILS # (AUTO) 5.3 /CMM (1.8-8.9); NEUTROPHILS % (AUTO) 75.7 % (43.0-81.0); PLATELET COUNT (AUTO) 176 /CMM (150-450); RDW COEFFICIENT OF VARIATION 14.5 (11.5-15.0); RED BLOOD CELL COUNT(AUTO) 3.41 MIL/uL (4.5-6.0)
[2017-03-13] MEDS: ACETAMINOPHEN 325 MG TABLET PO PRN (18:14)
--- NOTE | 2017-03-13 18:25 | NUR ---
WRECKING CAR DRIVER WEANING DONE BUT PATIENT PLACED BACK TO AC CANNOT TOLERATE WEANING PROCESS, RR-38 PATIENT WAS GIVEN PARACETAMOL, LOW GRADE FEVER NOTED MAINTAINED IN A COOL ENVIRONMENT SECOND DOSE LACTULOSE NOT GIVEN, BM 2X NO OTHER UNTOWARD SYMPTOMS SEEN ENDORSED TO NOD
--- NOTE | 2017-03-13 20:00 | NUR ---
Received patient resting in no acute distress.Remains intubated/vented on AC mode with sedation of Diprivan at 40 mcg.SR per monitor.VS stable.NGT feeding infusing at 65 ml/hr.No residual noted. HOB elevated.FC to gravity draining well.Turned and repositioned.Continue monitoring.
[2017-03-13] MEDS: ENOXAPARIN SODIUM 40 MG/0.4 ML DISP.SYRIN SQ SCH (21:02)
--- NOTE | 2017-03-13 21:44 | NUR ---
PT RECEIVED INTUBATED ON [facility] VENT. NO RESP DISTRESS. PT TOLERATING VENT SETTINGS. 7.5 ETT AT 22CM LIP LINE. SX'D FOR SML AMT OF THICK PALE SECRETIONS. VENT ALARMS SET AND AUDIBLE. AMBU BAG AT [facility]. VENT PLUGGED INTO RED OUTLET. WILL CONTINUE TO MONITOR. Addendum: 03/13/17 at 2146 by BENTLEY REYNA RT Amended: Links added.
[2017-03-13] MEDS: ATORVASTATIN 10 MG TABLET NG SCH (22:02)
[2017-03-13] MEDS: SENNOSIDES 8.6 MG TABLET PO SCH (22:02)
[2017-03-13] MEDS: LEVOFLOXACIN 250 MG /D5W 50 ML 250 MG in PREMIX 1 EA IV SCH (23:05)
[2017-03-13] MEDS: PANTOPRAZOLE 40 MG VIAL IV SCH (23:38)
[2017-03-14] VITALS (35 sets, daily range): BP systolic 91–162; BP diastolic 48–87
[2017-03-14] MEDS: BLOOD SUGAR DIAGNOSTIC 1 EACH STRIP IN SCH ×2 (00:02→05:53)
[2017-03-14] MEDS: VANCOMYCIN 0.75 GM in IV D5W 250 ML IV SCH ×2 (01:01→12:30)
[2017-03-14] MEDS: PROPOFOL 100 ML IV PRN ×4 (01:34→22:55)
[2017-03-14] MEDS: AZITHROMYCIN 500 MG in IV D5W 250 ML IV SCH (02:08)
[2017-03-14] MEDS: ALBUTEROL FS 2.5 MG/3 ML VIAL.NEB NEB SCH ×6 (03:10→23:21)
[2017-03-14] MEDS: IPRATROPIUM NEB FS 0.5 MG/2.5 ML AMPUL.NEB NEB SCH ×6 (03:10→23:21)
[2017-03-14 05:02] LABS: BASOPHILS % (AUTO) 0.1 % (0.0-2.0); EOSINOPHILS # (AUTO) 0.6 /CMM (0.0-0.7); EOSINOPHILS % (AUTO) 9.1 % (0.0-6.0); HEMATOCRIT 29 % (39-51); HEMOGLOBIN 9.6 g/dL (13.5-17.5); LYMPHOCYTES # (AUTO) 0.7 /CMM (0.8-4.8); LYMPHOCYTES % (AUTO) 10.7 % (20.0-44.0); MEAN CORPUSCULAR HEMOGLOBIN 30 PG (26.0-33.0); MEAN CORPUSCULAR HGB CONC 34 g/dl (31.0-36.0); MEAN CORPUSCULAR VOLUME 88 fL (80-96); MONOCYTES # (AUTO) 0.4 /CMM (0.1-1.30); MONOCYTES % (AUTO) 5.8 % (2.0-12.0); NEUTROPHILS # (AUTO) 4.8 /CMM (1.8-8.9); NEUTROPHILS % (AUTO) 74.3 % (43.0-81.0); PLATELET COUNT (AUTO) 209 /CMM (150-450); RDW COEFFICIENT OF VARIATION 13.8 (11.5-15.0); RED BLOOD CELL COUNT(AUTO) 3.26 MIL/uL (4.5-6.0); WHITE BLOOD COUNT (AUTO) 6.4 K/uL (4.3-11.0)
[2017-03-14 05:19] LABS: CALCIUM, SERUM 7.8 mg/dL (8.5-10.1); CARBON DIOXIDE 30 mmol/L (21-32); CHLORIDE 107 mmol/L (98-107); CREATININE 0.5 mg/dL (0.6-1.3); GLUCOSE 129 mg/dL (74-106); MAGNESIUM 1.7 mg/dL (1.8-2.4); PHOSPHORUS 3.1 mg/dL (2.5-4.9); POTASSIUM 3.7 mmol/L (3.5-5.1); SODIUM SERUM 143 mmol/L (136-145); UREA NITROGEN, BLOOD 10 mg/dL (7-18)
--- NOTE | 2017-03-14 07:05 | NUR ---
Patient resting.VS remains stable.No significant change noted all throughout the shift.Bathed.Turned and repositioned.Moderate urine output.No BM noted.NAD.
--- NOTE | 2017-03-14 08:02 | NUR ---
RT PATIENT REC'D ORALLY INTUBATED ON [facility] VENT WITH SETTINGS SET BY MD ROSEANNE DONALDSON. VENT ALARMS CHECKED + AUDIBLE. VENT PLUGGED INTO RED OUTLET. PATIENT SUCTIONED WITH SMALL AMT OF PALE YELLOW SEMITHICK SECRETIONS. SHAHZAD SANDOVAL B/S HEARD. NICKI BAG AT HOB. Addendum: 03/14/17 at 0842 by ROSARIO KERR RT Amended: Links added.
[2017-03-14] MEDS: ASPIRIN 81 MG TAB.CHEW PO SCH (09:00)
[2017-03-14] MEDS: LACTULOSE 10 G/15 ML UDC (PYXIS) PO SCH ×2 (09:00→17:00)
[2017-03-14] MEDS: NEOMY SULF/BACITRAC ZN/POLY 15 GM TUBE TP SCH (09:01)
[2017-03-14] MEDS: CHOLECALCIFEROL 1,000 UNIT TABLET (VIT D3) PO SCH ×2 (09:01→17:00)
[2017-03-14] MEDS: Z GUARD REMEDY 2 OZ OINT TP SCH (09:01)
[2017-03-14] MEDS: CARBIDOPA/LEVODOPA 25/100 MG 1 UDTAB PO SCH ×3 (09:01→17:00)
[2017-03-14] MEDS: Magnesium 1GM/D5W 100ML PREMIX 100 ML IV SCH ×2 (09:25→10:15)
--- NOTE | 2017-03-14 11:05 | NUR ---
SOFTWARE ASSET MANAGER WEANING STARTED, PROPOFOL STOPPED MONITORED PATIENT CLOSELY PATIENT IS ALERT, MOVES ON BED AT TIME TO TIME, REMOVES HIS GOWN AND TRYING TO REMOVE NGT AND ET. HE IS PLACED SOFT WRIST RESTRAINT
[2017-03-14] MEDS: GLYTROL 1,000 ML BAG GT PRN (12:30)
[2017-03-14] MEDS: IV NS 0.9% 250 ML IV PRN (12:43)
--- NOTE | 2017-03-14 13:48 | NUR ---
RT PER DR CASE PATIENT PLACED ON SIMV 4, 500, PS 12, +5. VENT ALARMS CHECKED + AUDIBLE. PATIENT APPEARS COMFORTABLE AND IN NO DISTRESS AT THIS TIME. WILL CONT TO MONITOR. Addendum: 03/14/17 at 1349 by ROSARIO KERR RT Amended: Links added.
--- NOTE | 2017-03-14 15:07 | NUR ---
PT UN COMFORTABLE, TACHYPNEIC W RR 36 BPM, RHYTHMIC CHEWING ON ETT AND KICKING AND HITTING AT NURSES. NO PLAN FOR EXTUBATION TODAY THEREFORE A/C MODE RESUMED AND DIPRIVAN RESUMED
--- NOTE | 2017-03-14 15:13 | NUR ---
RT PATIENT UNABLE TO TOLERATE WEANING WITH VISIBLE SIGNS OF SOB AND DISTRESS. PATIENT PLACED BACK ON PREVIOUS VENT SETTINGS. RN AWARE. Addendum: 03/14/17 at 1514 by ROSARIO KERR RT Amended: Links added.
--- NOTE | 2017-03-14 18:13 | NUR ---
ORACLE TECHNICAL ARCHITECT PATIENT IS BACK TO AC MODE, DIPRIVAN RESTARTED LACTULOSE SECOND DOSE NOT GIVEN, LARGE STOOL SOFT NOTED BLOOD PRESSURE MONITORED CLOSELY URINE OUTPUT GREENISH COLOR, LARGE IN AMOUNT ENDORSED TO NOD
[2017-03-14] MEDS: ATORVASTATIN 10 MG TABLET NG SCH (21:25)
[2017-03-14] MEDS: SENNOSIDES 8.6 MG TABLET PO SCH (21:25)
[2017-03-14] MEDS: AZITHROMYCIN 250 MG TABLET GT SCH (21:25)
[2017-03-14] MEDS: LEVOFLOXACIN (250MG) 250 MG TABLET NG SCH (21:25)
[2017-03-14] MEDS: ENOXAPARIN SODIUM 40 MG/0.4 ML DISP.SYRIN SQ SCH (21:26)
--- NOTE | 2017-03-14 21:46 | NUR ---
PT RECEIVED INTUBATED ON [facility] VENT. NO RESP DISTRESS. PT TOLERATING VENT SETTINGS. SX'D FOR SML AMT OF THICK PALE SECRETIONS. VENT ALARMS SET AND AUDIBLE. AMBU BAG AT [facility]. VENT PLUGGED INTO RED OUTLET. WILL CONTINUE TO MONITOR. Addendum: 03/14/17 at 2146 by BENTLEY REYNA RT Amended: Links added.
[2017-03-14] MEDS: PANTOPRAZOLE 40 MG VIAL IV SCH (23:12)
[2017-03-15] VITALS (37 sets, daily range): BP systolic 92–147; BP diastolic 52–82
[2017-03-15] MEDS: VANCOMYCIN 0.75 GM in IV D5W 250 ML IV SCH ×2 (00:45→15:30)
[2017-03-15] MEDS: PROPOFOL 100 ML IV PRN ×2 (03:27→18:15)
[2017-03-15] MEDS: IPRATROPIUM NEB FS 0.5 MG/2.5 ML AMPUL.NEB NEB SCH ×6 (03:31→23:20)
[2017-03-15] MEDS: ALBUTEROL FS 2.5 MG/3 ML VIAL.NEB NEB SCH ×6 (03:31→23:20)
[2017-03-15 04:41] LABS: BASOPHILS % (AUTO) 0.5 % (0.0-2.0); EOSINOPHILS # (AUTO) 0.5 /CMM (0.0-0.7); HEMATOCRIT 30 % (39-51); HEMOGLOBIN 10.1 g/dL (13.5-17.5); LYMPHOCYTES # (AUTO) 0.8 /CMM (0.8-4.8); LYMPHOCYTES % (AUTO) 12.6 % (20.0-44.0); MEAN CORPUSCULAR HEMOGLOBIN 30 PG (26.0-33.0); MEAN CORPUSCULAR HGB CONC 34 g/dl (31.0-36.0); MEAN CORPUSCULAR VOLUME 87 fL (80-96); MONOCYTES # (AUTO) 0.4 /CMM (0.1-1.30); MONOCYTES % (AUTO) 6.6 % (2.0-12.0); NEUTROPHILS # (AUTO) 4.9 /CMM (1.8-8.9); NEUTROPHILS % (AUTO) 72.3 % (43.0-81.0); PLATELET COUNT (AUTO) 252 /CMM (150-450); RED BLOOD CELL COUNT(AUTO) 3.44 MIL/uL (4.5-6.0); RETICULOCYTE COUNT 1.7 % (0.6-2.5); WHITE BLOOD COUNT (AUTO) 6.8 K/uL (4.3-11.0)
[2017-03-15 04:48] LABS: CARBON DIOXIDE 32 mmol/L (21-32); CHLORIDE 106 mmol/L (98-107); SODIUM SERUM 141 mmol/L (136-145)
[2017-03-15 04:58] LABS: CALCIUM, SERUM 7.7 mg/dL (8.5-10.1); CREATININE 0.5 mg/dL (0.6-1.3); GLUCOSE 123 mg/dL (74-106); UREA NITROGEN, BLOOD 11 mg/dL (7-18)
[2017-03-15 04:59] LABS: IRON, SERUM 14 ug/dl (50-175); TOTAL IRON BINDING CAPACITY 143 ug/dl (250-450)
[2017-03-15] MEDS: GLYTROL 1,000 ML BAG GT PRN (06:44)
--- NOTE | 2017-03-15 07:45 | NUR ---
INITIAL HOME DAY CARE PROVIDER NOTE RCVD PT WITH EYES OPEN, INTUBATED ETT 7.5 22 AT LIP, SEDATED, SHOWING NO S/O DISTRESS OR PAIN. SR ON TELE. TOLERATING ORDERED VENT SETTINGS. NG TUBE PLACEMENT VERIFIED BY AUSCULTATION/ASPIRATION. TOLERATING ORDERED TUBE FEEDING RATE. NO RESIDUAL OBTAINED. MITCHELL IN PLACE DRAINING CLEAR, GREEN TINTED URINE. IV SITES C/D/I/PATENT. NO S/O INFILTRATION/PHLEBITIS OBSERVED UPON FLUSHING LINES. WILL CONTINUE TO MONITOR PT FOR SAFETY AND COMFORT. CALL LIGHT WITHIN REACH. BED IN LOW AND LOCKED POSITION.
[2017-03-15] MEDS: CARBIDOPA/LEVODOPA 25/100 MG 1 UDTAB PO SCH ×3 (09:14→17:13)
[2017-03-15] MEDS: CHOLECALCIFEROL 1,000 UNIT TABLET (VIT D3) PO SCH ×2 (09:14→17:13)
[2017-03-15] MEDS: ASPIRIN 81 MG TAB.CHEW NG SCH (09:14)
[2017-03-15] MEDS: Z GUARD REMEDY 2 OZ OINT TP SCH (09:15)
[2017-03-15] MEDS: LACTULOSE 10 G/15 ML UDC (PYXIS) PO SCH ×2 (09:15→17:14)
[2017-03-15] MEDS: NEOMY SULF/BACITRAC ZN/POLY 15 GM TUBE TP SCH (09:15)
--- NOTE | 2017-03-15 09:30 | NUR ---
POWER EQUIPMENT TECHNOLOGY INSTRUCTOR NOTE SEDATION VACATION IMPLEMENTED, PT REMAINS WITH EYES OPEN, UNABLE TO FOLLOW COMMANDS. VITAL SIGNS STABLE. NO S/O DISTRESS OBSERVED.WILL CONTINUE TO MONITOR.
--- NOTE | 2017-03-15 13:48 | NUR ---
FIRST BEATER NOTE DR. SANCHEZ IN UNIT, UPDATED ON PT'S CONDITION. NO NEW ORDERS RCVD. WILL CONTINUE TO MONITOR.
[2017-03-15] MEDS: IV NS 0.9% 250 ML IV PRN (15:36)
[2017-03-15] MEDS: ACETAMINOPHEN 325 MG TABLET PO PRN (17:14)
--- NOTE | 2017-03-15 18:45 | NUR ---
ENDING PAVILION CUTTER NOTE PT REMAINS STABLE INTUBATED, SR ON TELE. TOLERATING ORDERED VENT SETTINGS AND TUBE FEEDING RATE. IV SITES C/D/I/PATENT. PT'S CARE WILL BE ENDORSED TO GREEN CHAIN WORKER RN FOR CONTINUITY OF CARE. CALL LIGHT WITHIN REACH. BED IN LOW AND LOCKED POSITION.
--- NOTE | 2017-03-15 20:00 | NUR ---
CERTIFIED PROFESSIONAL CONTROLLER - NOTES - RECEIVED PT IN BED. PT IS SEDATED, AND OPENS EYES BUT DOES NOT TRACK. PT IS ORALLY INTUBATED TOLERATING CURRENT SETTINGS, SATURATION IS 99-100%. PT IS CURRENTLY SR ON THE MONITOR. PT HAS RIGHT NARE N/G FEEDING TUBE WITH GLYROL 65CC/HR. PT HAS DIAPER ON, CURRENTLY DRY. PT HAS A FEW SKIN SKIN ISSUES NOTED ON THE FLOW SHEET. REPOSITIONED FOR COMFORT AND CARE. NO ACUTE DISTRESS SEEN AT THIS TIME, PT APPEARS COMFORTABLE. WILL MONITOR PT.
[2017-03-15] MEDS: LEVOFLOXACIN (250MG) 250 MG TABLET NG SCH (21:10)
[2017-03-15] MEDS: SENNOSIDES 8.6 MG TABLET PO SCH (21:10)
[2017-03-15] MEDS: ATORVASTATIN 10 MG TABLET NG SCH (21:10)
[2017-03-15] MEDS: AZITHROMYCIN 250 MG TABLET GT SCH (21:10)
[2017-03-15] MEDS: ENOXAPARIN SODIUM 40 MG/0.4 ML DISP.SYRIN SQ SCH (21:11)
[2017-03-16] VITALS (36 sets, daily range): BP systolic 99–162; BP diastolic 59–90
[2017-03-16] MEDS: PANTOPRAZOLE 40 MG VIAL IV SCH ×2 (00:38→23:59)
[2017-03-16] MEDS: VANCOMYCIN 0.75 GM in IV D5W 250 ML IV SCH ×2 (00:39→13:00)
[2017-03-16] MEDS: IPRATROPIUM NEB FS 0.5 MG/2.5 ML AMPUL.NEB NEB SCH ×5 (03:30→19:58)
[2017-03-16] MEDS: ALBUTEROL FS 2.5 MG/3 ML VIAL.NEB NEB SCH ×5 (03:30→19:58)
[2017-03-16] MEDS: PROPOFOL 100 ML IV PRN (04:43)
[2017-03-16 04:57] LABS: CALCIUM, SERUM 7.8 mg/dL (8.5-10.1); CARBON DIOXIDE 32 mmol/L (21-32); CHLORIDE 105 mmol/L (98-107); CREATININE 0.5 mg/dL (0.6-1.3); GLUCOSE 88 mg/dL (74-106); POTASSIUM 3.9 mmol/L (3.5-5.1); SODIUM SERUM 142 mmol/L (136-145); UREA NITROGEN, BLOOD 12 mg/dL (7-18)
[2017-03-16] MEDS: GLYTROL 1,000 ML BAG GT PRN ×2 (05:52→16:41)
--- NOTE | 2017-03-16 07:29 | NUR ---
RT PT RECEIVED ORALLY INTUBATED WITH A 7.5 ETT SECURED AT 22CM AT THE LIP LINE ON THE VENT. VENT ALARMS ARE SET AND AUDIBLE WITH BVM BY BEDSIDE. REED PRESS FEEDER CUFF PRESSURE NOTED. VENT IS PLUGGED INTO RED OUTLET. NO RESPIRATORY DISTRESS NOTED AT THIS TIME, WILL CONTINUE TO MONITOR. Addendum: 03/16/17 at 1801 by CLAUDETTE CESPEDES RT Amended: Links added.
[2017-03-16] MEDS: ASPIRIN 81 MG TAB.CHEW NG SCH (08:10)
[2017-03-16] MEDS: CHOLECALCIFEROL 1,000 UNIT TABLET (VIT D3) PO SCH ×2 (08:10→16:41)
[2017-03-16] MEDS: LACTULOSE 10 G/15 ML UDC (PYXIS) PO SCH ×2 (08:10→16:41)
[2017-03-16] MEDS: CARBIDOPA/LEVODOPA 25/100 MG 1 UDTAB PO SCH ×3 (08:10→16:41)
[2017-03-16] MEDS: NEOMY SULF/BACITRAC ZN/POLY 15 GM TUBE TP SCH (08:11)
[2017-03-16] MEDS: Z GUARD REMEDY 2 OZ OINT TP SCH (08:11)
[2017-03-16 08:53] LABS: ABG BASE EXCESS 7.1 mmol/L; ABG OXYGEN SATURATION 93.4 % (92.0-98.5); ABG PCO2 49.1 mmHg (35.0-45.0); ABG PH 7.436 (7.350-7.450); ABG PO2 70.4 mmHg (75.0-100.0); AaDO2 158.3 mmHg; COHb 0.3 % (0.5-1.5); MetHb 0.5 % (0.0-1.5); O2Hb 92.7 % (94.0-97.0); PEEP,BG 5 cm H2O; SITE, ABG Right Radial; VT, ABG 500 mL
--- NOTE | 2017-03-16 10:10 | NUR ---
AUDIT DIRECTOR- Sedation Vacation. Diprivan turned off. Pt put on SIMV mode by RT as ordered by Dr. Avery. Pt opens eyes, unable to follow simple commands, does not track but moving legs independently. 1130- ABGs done post vent changes. Results relayed to Dr. Avery by RT. No other orders obtained. Pt displaying no s/s of distress. Vital signs stable. Will continue to monitor.
[2017-03-16 11:34] LABS: ABG BASE EXCESS 5.5 mmol/L; ABG OXYGEN SATURATION 94.9 % (92.0-98.5); ABG PCO2 49.3 mmHg (35.0-45.0); ABG PH 7.415 (7.350-7.450); ABG PO2 77.2 mmHg (75.0-100.0); AaDO2 151.3 mmHg; COHb 0.3 % (0.5-1.5); MetHb 0.4 % (0.0-1.5); O2Hb 94.2 % (94.0-97.0); PEEP,BG 5 cm H2O; SITE, ABG Right Radial; VENT MODE, BG SIMV 4 / PS 12; VT, ABG 500 mL
--- NOTE | 2017-03-16 14:00 | NUR ---
RESOURCE CONSERVATIONIST- Dr. Fabian at bedside. Per md, plan is to transfer pt to [facility], awaiting for ICU bed. Informed md brewery representative from [facility] has already come in today to assess pt. Md aware. No further orders obtained. Will continue to monitor.
[2017-03-16] MEDS: IV NS 0.9% 250 ML IV PRN (16:57)
[2017-03-16] MEDS: ACETAMINOPHEN 325 MG TABLET PO PRN (17:36)
--- NOTE | 2017-03-16 20:00 | NUR ---
EDUCATION PROFESSOR - NOTES - RECEIVED PT IN BED. OPENS EYES AND DOES TRACK, BUT DOES NOT FOLLOW COMMANDS. PT IS ORALLY INTUBATED TOLERATING CURRENT SETTINGS, SATURATION IS 99-100%. PT IS CURRENTLY SR ON THE MONITOR. PT HAS RIGHT NARE N/G FEEDING TUBE WITH GLYROL 65CC/HR. PT HAS DIAPER ON, CURRENTLY DRY. PT HAS A FEW SKIN SKIN ISSUES NOTED ON THE FLOW SHEET. REPOSITIONED FOR COMFORT AND CARE. NO ACUTE DISTRESS SEEN AT THIS TIME, PT APPEARS COMFORTABLE. WILL MONITOR PT.
[2017-03-16] MEDS: LEVOFLOXACIN (250MG) 250 MG TABLET NG SCH (20:04)
[2017-03-16] MEDS: ENOXAPARIN SODIUM 40 MG/0.4 ML DISP.SYRIN SQ SCH (20:05)
[2017-03-16] MEDS: SENNOSIDES 8.6 MG TABLET PO SCH (21:10)
[2017-03-16] MEDS: AZITHROMYCIN 250 MG TABLET GT SCH (21:10)
[2017-03-16] MEDS: ATORVASTATIN 10 MG TABLET NG SCH (21:10)
[2017-03-17] VITALS (35 sets, daily range): BP systolic 95–151; BP diastolic 51–97
[2017-03-17] MEDS: VANCOMYCIN 0.75 GM in IV D5W 250 ML IV SCH ×2 (00:04→12:27)
[2017-03-17] MEDS: ALBUTEROL FS 2.5 MG/3 ML VIAL.NEB NEB SCH ×6 (00:12→19:23)
[2017-03-17] MEDS: IPRATROPIUM NEB FS 0.5 MG/2.5 ML AMPUL.NEB NEB SCH ×6 (00:12→19:23)
[2017-03-17 05:24] LABS: CALCIUM, SERUM 7.8 mg/dL (8.5-10.1); CARBON DIOXIDE 33 mmol/L (21-32); CHLORIDE 102 mmol/L (98-107); CREATININE 0.5 mg/dL (0.6-1.3); GLUCOSE 106 mg/dL (74-106); POTASSIUM 4.3 mmol/L (3.5-5.1); SODIUM SERUM 139 mmol/L (136-145); UREA NITROGEN, BLOOD 13 mg/dL (7-18)
[2017-03-17] MEDS: NEOMY SULF/BACITRAC ZN/POLY 15 GM TUBE TP SCH (08:35)
[2017-03-17] MEDS: CARBIDOPA/LEVODOPA 25/100 MG 1 UDTAB PO SCH ×3 (08:35→17:17)
[2017-03-17] MEDS: LACTULOSE 10 G/15 ML UDC (PYXIS) PO SCH ×2 (08:35→17:16)
[2017-03-17] MEDS: CHOLECALCIFEROL 1,000 UNIT TABLET (VIT D3) PO SCH ×2 (08:35→17:17)
[2017-03-17] MEDS: ASPIRIN 81 MG TAB.CHEW NG SCH (08:35)
[2017-03-17] MEDS: Z GUARD REMEDY 2 OZ OINT TP SCH (08:36)
[2017-03-17] MEDS: ACETAMINOPHEN 325 MG TABLET PO PRN (08:37)
--- NOTE | 2017-03-17 11:15 | NUR ---
CALLED [facility] SPOKE TO THE DANCE COSTUME DESIGNER AURA SHE STATES THEY WILL HAVE AN ICU BED FOR THE PT AFTER 6PM. INSTRUCTION ARE TO CALL FOR REPORT AFTER 6PM AND ASK FOR [facility] THE HOUSE SUP THAT WILL BE ON DUTY AT THAT TIME, SHE WILL TAKE REPORT FOR THE PT. CHARGE NURSE NOTIFIED. Addendum: 03/17/17 at 1610 by YONATAN SALDIVAR RN PER CASE MGMT THE EARLIEST PICKUP BY [facility] IS 929. WILL GIVE REPORT BUT ENDORSE PATIENT CARE.
--- NOTE | 2017-03-17 17:06 | NUR ---
NURSING SURGICAL SUPPLIES STERILIZER POLLY FROM [facility] CALLS AND CONNECTS ME WITH CHARGE NURSE IN THEIR ICU. GAVE REPORT ON THE PATIENT, OUR PICKUP TIME IS SCHEDULED FOR 0930 [facility].
--- NOTE | 2017-03-17 19:30 | NUR ---
Received patient alert eyes open and tracking non verbal.Patient restless and kinking.Bilateral soft wrist restraints in place to prevent pulling out tubes.Orally intubated to vent on AC 12,TV 500,FIO2 40%,PEEP 5. Vent settings well tolerated sating 99%.SR per monitor.VS stable.Hemodynamically stable.No acute distress noted.Right nares NGT with Glytrol feeding infusing.Placement verified by aspiration and auscultation.No residual noted.Abdomen soft bs active.FC to gravity drainage with clear yellow urine.NS at TKO infusing to CONRO PICC LINE.Site intact.Turned and repositioned.Awaiting for transfer to [place] at 2130.
--- NOTE | 2017-03-17 20:00 | NUR ---
RT RECEIVED PT ORALLY INTUBATED WITH A 7.5 ETT SECURED AT 22CM AT THE LIP WITH NOTED VENT SETTINGS. VENT ALARMS CHECKED AND AUDIBLE WITH BVM BY BEDSIDE. PROMOTIONAL MARKETING ANALYST CUFF PRESSURE DONE. B/S BIALTERAL AND SX WITH MOD THK WHITE/CLEAR SECRETIONS. VENT IS PLUGGED INTO RED OUTLET. NO RESPIRATORY DISTRESS NOTED AT THIS TIME, WILL CONTINUE TO MONITOR T/O SHIFT. Addendum: 03/17/17 at 2000 by ARLET IRIZARRY RT Amended: Links added.
[2017-03-17] MEDS: LEVOFLOXACIN (250MG) 250 MG TABLET NG SCH (21:05)
[2017-03-17] MEDS: AZITHROMYCIN 250 MG TABLET GT SCH (21:05)
[2017-03-17] MEDS: ENOXAPARIN SODIUM 40 MG/0.4 ML DISP.SYRIN SQ SCH (21:05)
[2017-03-17] MEDS: ATORVASTATIN 10 MG TABLET NG SCH (21:05)
--- NOTE | 2017-03-17 21:30 | NUR ---
Patient left via [facility]S protocol in a gurney in stable condition to [facility] with [facility].Report and discharge papers given to LAMINE.PICC LINE intact and NGT right nares clamped.No belongings.
[2017-03-17] MEDS: SENNOSIDES 8.6 MG TABLET PO SCH (21:39)
== END 2017-03-17 21:30 | disposition short-term general hospital (02) | DRG 870 ==
LOC: ER 20:38 → ICU 21:46
PROVIDERS: ADMIT Internal Medicine; ATTEND Internal Medicine
PROC: 5A1955Z Respiratory Ventilation, Greater than 96 Consecutive Hours (ICD-10-PCS; principal; 2017-03-11)
PROC: 02HV33Z Insertion of Infusion Device into Superior Vena Cava, Percutaneous Approach (ICD-10-PCS; 2017-03-11)
PROC: B548ZZA Ultrasonography of Superior Vena Cava, Guidance (ICD-10-PCS; 2017-03-11)
DX: A41.9 Sepsis, unspecified organism (principal); J69.0 Pneumonitis due to inhalation of food and vomit; R65.21 Severe sepsis with septic shock; J96.01 Acute respiratory failure with hypoxia; E43 Unspecified severe protein-calorie malnutrition; G93.40 Encephalopathy, unspecified; G93.1 Anoxic brain damage, not elsewhere classified; J98.11 Atelectasis; R64 Cachexia; E46 Unspecified protein-calorie malnutrition; D63.8 Anemia in other chronic diseases classified elsewhere; E03.9 Hypothyroidism, unspecified; E11.9 Type 2 diabetes mellitus without complications; E78.5 Hyperlipidemia, unspecified; E83.42 Hypomagnesemia; F02.80 Dementia in other diseases classified elsewhere, unspecified severity, without behavioral disturbance, psychotic disturbance, mood disturbance, and anxiety; G20 Parkinson's disease; F41.9 Anxiety disorder, unspecified; G30.9 Alzheimer's disease, unspecified; I10 Essential (primary) hypertension; I25.10 Atherosclerotic heart disease of native coronary artery without angina pectoris; I70.0 Atherosclerosis of aorta; R13.10 Dysphagia, unspecified; Z88.0 Allergy status to penicillin; Z79.899 Other long term (current) drug therapy; Z79.83 Long term (current) use of bisphosphonates; Z79.82 Long term (current) use of aspirin; Z87.891 Personal history of nicotine dependence
CPT/HCPCS: 31720; 36415; 36569; 36600; 71010-TC; 80048-TC; 80053-TC; 80061-TC; 80076-TC; 80202-TC; 81000-TC; 82272-TC; 82746; 82803-TC; 82962-TC; 83540-TC; 83735-TC; 83880; 84100-TC; 84443-TC; 84478-TC; 84484-TC; 85025-TC; 85045-TC; 85730-TC; 87040-TC; 87070-TC; 87081-TC; 87086-TC; 94002-TC; 94003-TC; 94640-TC; 94762-TC; A4216; A4606; A6402; A9563; C1751; C9113; J0171; J0456; J1650; J1815; J1956; J2250; J2704; J3370; J3475; J3480; J3490; J7030; J7040; J7050; J7060; Z7610